=== PATIENT | male | born 1960 | race Caucasian/White ===

== ENCOUNTER 2018-08-21 21:34 | Emergency (ER) | payer OTHER ==
--- NOTE | 2018-08-21 22:15 | ED ---
Palpitations / Dysrhythmia - HPI Summary HPI Summary: Pt is a 57 y/o M presenting to the ED with a chief complaint of heart palpitations onset about 1 hour ago after dinner. He reports a hx of Afib 14 years ago and this felt similar. He denies pain or any associated symptoms. He had an exceptionally not stressful day at work, and only had two cups of decaffeinated tea. - History of Current Complaint Chief Complaint: EDDysrhythmPalp Time Seen by Provider: 08/21/18 21:41 Hx Obtained From: Patient Onset/Duration: Sudden Onset, Lasting Hours, Resolved Severity Initially: Moderate Severity Currently: None Character: Irregular, Pounding Aggravating: Nothing Alleviating: Nothing Associated Signs & Symptoms: Negative - Allergy/Home Medications Allergies/Adverse Reactions: Allergies Allergy/AdvReac Type Severity Reaction Status Date / Time No Known Allergies Allergy Verified 08/21/18 21:43 PMH/Surg Hx/FS Hx/Imm Hx Previously Healthy: Yes Endocrine/Hematology History: Denies: Hx Diabetes, Hx Systemic Lupus Erythematosus Cardiovascular History: Reports: Hx Atrial Fibrillation - one episode of afib 14 years ago, Other Cardiovascular Problems/Disorders - HX OF CARDIAC CATH/ ABNORMAL STRESS TEST/BENIGN Denies: Hx Congestive Heart Failure, Hx Hypertension, Hx Pacemaker/ICD GI History: Reports: Other GI Disorders - HX OF ACID REFLUX History: Denies: Hx Dialysis, Hx Renal Disease Musculoskeletal History: Denies: Hx Rheumatoid Arthritis Sensory History: Reports: Hx Contacts or Glasses - READING GLASSES Denies: Hx Hearing Aid Opthamlomology History: Reports: Hx Contacts or Glasses - READING GLASSES Psychiatric History: Denies: Hx Panic Disorder - Cancer History Hx Chemotherapy: No - Surgical History Surgery Procedure, Year, and Place: 2006 LIPOMAS REMOVED FROM ARMS, BACK, AND ABDOMEN, OFFICE. 2011 CARDIAC CATHERIZATION (BENIGN) AFTER ABNORMAL STRESS TEST , [place] Hx Anesthesia Reactions: No - Immunization History Date of Tetanus Vaccine: unk Date of Influenza Vaccine: none Infectious Disease History: No Infectious Disease History: Denies: Traveled Outside the [place] in Last 30 Days - Family History Known Family History: Positive: Unknown Negative: Hypertension - Social History Alcohol Use: Daily Alcohol Amount: 1-2 GLASSES WINE/DAY Hx Substance Use: No Substance Use Type: Reports: None Hx Tobacco Use: No Smoking Status (MU): Never Smoked Tobacco Review of Systems Positive: Palpitations. Negative: Chest Pain Negative: Myalgia All Other Systems Reviewed And Are Negative: Yes Physical Exam - Summary Physical Exam Summary: VITAL SIGNS: Reviewed. GENERAL: Patient is a well-developed and nourished male who is lying comfortable in the stretcher. Patient is not in any acute respiratory distress. Pt is somewhat anxious. HEAD AND FACE: No signs of trauma. No ecchymosis, hematomas or skull depressions. No sinus tenderness. EYES: PERRLA, EOMI x 2, No injected conjunctiva, no nystagmus. EARS: Hearing grossly intact. Ear canals and tympanic membranes are within normal limits. MOUTH: Oropharynx within normal limits. NECK: Supple, trachea is midline, no adenopathy, no JVD, no carotid bruit, no c- spine tenderness, neck with full ROM. CHEST: Symmetric, no tenderness at palpation LUNGS: Clear to auscultation bilaterally. No wheezing or crackles. CVS: Regular rate and rhythm, S1 and S2 present, no murmurs or gallops appreciated. ABDOMEN: Soft, non-tender. No signs of distention. No rebound no guarding, and no masses palpated. Bowel sounds are normal. EXTREMITIES: FROM in all major joints, no edema, no cyanosis or clubbing. NEURO: Alert and oriented x 3. No acute neurological deficits. Speech is normal and follows commands. SKIN: Dry and warm Triage Information Reviewed: Yes Vital Signs On Initial Exam: Initial Vitals Temp Pulse Resp BP Pulse Ox 97.5 F 155 18 150/54 98 08/21/18 21:42 08/21/18 21:42 08/21/18 21:42 08/21/18 21:42 08/21/18 21:42 Vital Signs Reviewed: Yes Diagnostics - Vital Signs Vital Signs Temp Pulse Resp BP Pulse Ox 08/21/18 21:42 97.5 F 155 18 150/54 98 - Laboratory Result Diagrams: 08/21/18 22:12 08/21/18 22:12 Lab Statement: Any lab studies that have been ordered have been reviewed, and results considered in the medical decision making process. - EKG 2138 Cardiac Rate: Other Rate - atrial fibrillation 153bpm EKG Rhythm: Atrial Fibrillation ST Segment: Non-Specific Ectopy: None 2205 Cardiac Rate: NL - 89bpm EKG Rhythm: Sinus Rhythm ST Segment: Non-Specific Ectopy: None EKG Comparison: Other Summary of EKG Findings: Improved compared to prior EKG. Course/Dx - Course Course Of Treatment: Pt has hx of parox afib last episode 14 yrs ago, took a few hours to convert. Pt came in here had palps since 8 no assoc. symptoms. Pt was NSR upon examination. His first EKG shows atrial fibrillation at 153bpm, and his second shows NSR 89bpm. During the pt's time in the ED, he remained in NSR. The pt is stable to be discharged with a dx of paroxysmal Afib. Results were discussed with the pt who is agreeable with this plan. - Diagnoses Provider Diagnoses: Paroxysmal A-fib Discharge - Sign-Out/Discharge Documenting (check all that apply): Patient Departure Patient Received Moderate/Deep Sedation with Procedure: No - Discharge Plan Condition: Stable Disposition: HOME Referrals: Sarthak Lau MD [Primary Care Provider] - Cornelius Garcia DO [Medical Doctor] - Additional Instructions: Please follow up with cardiology and with your primary care physician within the next 2-3 days. Return to the emergency department with any new or worsening symptoms. - Attestation Statements Document Initiated by Scribe: Yes Documenting Scribe: Susie Boudreaux Provider For Whom Montse is Documenting (Include Credential): Yamileth Patel MD. Scribe Attestation: Susie Powell, scribed for Yamileth Patel MD. on 08/21/18 at 2318. Status of Scribe Document: Ready
[2018-08-21 22:19] LABS: ABS Basophils 0 10^3/ul (0-0.2); ABS Eosinophils 0.1 10^3/ul (0-0.6); ABS Lymphocytes 2.2 10^3/ul (1.0-4.8); ABS Monocytes 0.4 10^3/ul (0-0.8); ABS Neutrophils 2.2 10^3/ul (1.5-7.7); ABS Nucleated RBC 0 10^3/ul; Eosinophil % 1.3 %; Hematocrit 48 % (36-46); Hemoglobin 16.4 g/dL (14.0-18.0); Lymphocyte % 45.6 %; Mean Corpuscular HGB Conc 34 g/dL (31-36); Mean Corpuscular Hemoglobin 30 pg (27-31); Mean Corpuscular Volume 88 fL (80-94); Mean Platelet Volume 7.4 fL (7.4-10.4); Nucleated Red Blood Cells % 0.2; Platelet Count 257 10^3/uL (150-450); Red Blood Count 5.44 10^6 /uL (4.18-5.48); Red Cell Distribution Width 14 % (10.5-15); White Blood Count 4.8 10^3/uL (3.5-10.8)
[2018-08-21 22:29] LABS: Activated Partial Thrombo Time 32.9 seconds (26.0-36.3); INR 0.86 (0.77-1.02)
[2018-08-21 22:35] LABS: Albumin 4.6 g/dL (3.2-5.2); Albumin/Globulin Ratio 1.6 (1-3); BUN/Creatinine Ratio 14.5 (8-20); Calcium 9.8 mg/dL (8.6-10.3); EGFR Non-African American 95.8 (>60); Globulin 2.8 g/dL (2-4); Magnesium 2.2 mg/dL (1.9-2.7); Total Bilirubin 0.5 mg/dL (0.2-1.0); Total Protein 7.4 g/dL (6.4-8.9)
[2018-08-21 23:02] LABS: TSH (Thyroid Stimulating Horm) 5.49 mcIU/mL (0.34-5.60)
[2018-08-21 23:14] LABS: Potassium 3.6 mmol/L (3.5-5.0)
[2018-08-21 23:27] VITALS: BP 139/91
== END 2018-08-21 23:28 | disposition home or self-care (01) ==
LOC: ED 21:34
DX: I48.0 Paroxysmal atrial fibrillation (principal)
CPT/HCPCS: 36415; 80053; 83735; 84443; 85025; 85610; 85730; 93005; 99282